=== PATIENT | female | born 1960 | race Two or more races ===

== ENCOUNTER → 2016-10-27 | Outpatient (CLI) | payer BC ==
--- NOTE | 2016-10-27 17:31 | HKNOTE ---
DATE OF SERVICE: 10/27/2016 HISTORY OF PRESENT ILLNESS: This 56-year-old female presents today for followup regarding left knee pain and hopes to get repeat cortisone injection. The patient was last seen on 05/24/2016, in which cortisone injection was performed. The patient states that she got significant relief for several months with left knee cortisone injection, but pain has gradually returned. Pain with weightbearing and bending of the knee. The patient does have history of osteoarthritis of the knee especially to the medial side. 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 VITAL SIGNS: Blood pressure is 136/77, temperature 98.8 degrees, pulse is 87, respiratory rate is 12, height is 5 feet 3 inches, weight is 260 pounds. PHYSICAL EXAMINATION: GENERAL: The patient is alert and oriented x3. Obese in stature. EXTREMITIES: Gait is normal but mildly antalgic today to the left knee. The patient is able to flex the knee up to 130 degrees and fully extend. Mild crepitus primarily to the medial compartment. Mild tenderness to palpation to the medial compartment of the knee. Normal sensory examination to light touch. 5/5 strength to the flexor and extensor muscle groups of the knee. CORTISONE INJECTION TO THE LEFT KNEE: Medial compartment of the knee was sterilized with Betadine swab today. A 22-gauge needle used to draw up 6 mL lidocaine with 2 mL Kenalog 40 mg. Area sterilized with Betadine prior to injection. The patient tolerated injection well. No complications after injection. ASSESSMENT AND PLAN: The patient is discussed with Dr. Quinones today and surgical intervention is not recommended by Dr. Quinones. The patient was advised to follow up as needed. At home therapy recommended. The patient advised that she can followup in a minimum of 3 months time if she would like repeat injection. Followup as needed. Dictated By: ANGELIQUE SANDERS for SALUD QUINONES MD, KP/SHAKIRA Conf#: [id number] DID#: [id number] MTDD
== END | disposition home or self-care (01) ==
LOC: HKI 15:22
DX: M17.12 Unilateral primary osteoarthritis, left knee (principal); M25.562 Pain in left knee; E66.9 Obesity, unspecified
CPT/HCPCS: 20610; J3301; Z7500; Z7610; G0463

== ENCOUNTER → 2017-03-07 | Outpatient (CLI) | payer BC ==
--- NOTE | 2017-03-07 21:52 | HKNOTE ---
DATE OF SERVICE: 03/07/2017 The cortisone injection I gave into her left knee in October of this year gave her about 6 months of relief. She has had much pain in the last 2 weeks. She requests repeat injection. PHYSICAL EXAMINATION: VITAL SIGNS: Blood pressure 170/85, temperature 98.5. KNEE: Examination of the left knee clinically degenerative osteoarthritis. MANAGEMENT: Under sterile conditions, given a repeat injection of 2 mL of Kenalog and 6 mL of 2% li docaine into the left knee and she will be seen again as necessary. Dictated By: SALUD VASQUEZ/SHAKIRA Conf#: [id number] DID#: [id number]
== END | disposition home or self-care (01) ==
LOC: HKI 14:45
DX: M17.12 Unilateral primary osteoarthritis, left knee (principal)
CPT/HCPCS: 20610; Z7500; Z7610; G0463